=== PATIENT | male | born 1965 | race Caucasian/White ===

== ENCOUNTER → 2017-06-25 | Outpatient (CLI) | payer BC ==
[2017-06-25 13:36] LABS: Appearance,Urine Clear (Clear); Bilirubin,Urine Negative (Negative); Blood,Urine Negative (Negative); Color,Urine Colorless; Glucose,Urine (UA) Negative (Negative); Ketones,Urine Negative (Negative); Leukocyte Esterase,Urine Negative (Negative); Nitrite,Urine Negative (Negative); Protein,Urine Negative (Negative); Specific Gravity,Urine 1.003 (1.001-1.035); Urobilinogen,Urine <2.0 mg/dL (<2.0)
[2017-06-25 13:38] LABS: HCT 44.3 % (39.0-53.0); HGB 15.2 gm/dL (13.0-17.5); MCH 31.7 pg (25.0-35.0); MCHC 34.3 g/dL (31.0-37.0); MCV 92.3 fL (80.0-100.0); Platelet Count 276 k/uL (150-450); RDW 12.8 % (11.5-15.5); WBC 6.7 k/uL (3.8-10.6)
[2017-06-25 13:55] LABS: Partial Thromboplastin Time 24.8 sec (22.0-30.0); Prothrombin Time 10.1 sec (9.0-12.0)
[2017-06-25 13:57] LABS: ALT 46 U/L (21-72); AST 27 U/L (17-59); Albumin 4.2 g/dL (3.5-5.0); Alkaline Phosphatase 45 U/L (38-126); Anion Gap 9 mmol/L; Blood Urea Nitrogen 17 mg/dL (9-20); Calcium 9.8 mg/dL (8.4-10.2); Carbon Dioxide 30 mmol/L (22-30); Chloride 102 mmol/L (98-107); Glucose 90 mg/dL (74-99); Potassium 4.7 mmol/L (3.5-5.1); Sodium 141 mmol/L (137-145); Total Bilirubin 0.4 mg/dL (0.2-1.3)
== END | disposition home or self-care (01) ==
LOC: LABPAT 12:37
PROVIDERS: ATTEND Orthopaedic Surgery
DX: Z01.818 Encounter for other preprocedural examination (principal); Z01.812 Encounter for preprocedural laboratory examination; M16.11 Unilateral primary osteoarthritis, right hip
CPT/HCPCS: 36415; 80053; 81003; 85027; 85610; 85730; 87070; 93005

== ENCOUNTER 2017-07-07 08:04 | Inpatient (IN) | payer BC ==
[2017-06-30 09:51] VITALS: BMI 25.8
[~2017-07-07 08:04] MED LIST: ACETAMINOPHEN TAB 500 MG TAB PO ONE; DEXAMETHASONE SOD PHOSPHATE 10 MG/ML 1 ML VIAL IV ONE; LACTATED RINGERS 1,000 ML IV SCH; MELOXICAM 7.5 MG TAB PO ONE; MIDAZOLAM 2 MG/2 ML VIAL IV PRN; MORPHINE SULFATE 4 MG/ML SYRINGE IV PRN; ONDANSETRON 4 MG/2 ML VIAL IVP ONE; SCOPOLAMINE 1.5MG/72HR PATCH TRANSDERM ONE; TRANEXAMIC ACID 1,000 MG in SODIUM CHLORIDE 0.9% 50 ML IVPB ONE; ceFAZolin IN SWFI 2 GM/20 ML SYRINGE IVP ONE
[2017-07-07] MEDS ORDERED: LIDOCAINE 1% 20 ML VIAL (10MG/ML) FOR IV START INTRADERMA ONE (08:58)
[2017-07-07] MEDS ORDERED: hydrOXYzine PAMOATE 25 MG CAP PO PRN (09:22)
[2017-07-07] MEDS ORDERED: HYDROmorphone 2 MG/ML 1 ML SYRINGE IVP PRN ×3 (09:22)
[2017-07-07] MEDS ORDERED: NALOXONE 0.4 MG/ML 1 ML VIAL IV PRN (09:22)
[2017-07-07] MEDS ORDERED: MAGNESIUM HYDROXIDE 2,400 MG/10 ML CUP PO PRN (09:22)
[2017-07-07] MEDS ORDERED: ONDANSETRON 4 MG/2 ML VIAL IVP PRN (09:22)
[2017-07-07] MEDS ORDERED: DIAZEPAM 5 MG TAB PO PRN ×2 (09:22)
[2017-07-07] MEDS ORDERED: HYDROcodone/APAP 5-325MG 1 EACH TAB PO PRN (09:22)
[2017-07-07] MEDS ORDERED: TRANEXAMIC ACID 1,000 MG/10 ML VIAL ONE (09:55)
[2017-07-07] MEDS ORDERED: PROPOFOL 10 MG/ML 20 ML VIAL IV ONE (09:55)
[2017-07-07] MEDS ORDERED: HEPARIN SODIUM,PORCINE 10,000 UNIT/ML 1 ML VIAL ONE (09:55)
[2017-07-07] MEDS ORDERED: fentaNYL (PF) 50 MCG/ML 2 ML AMP ONE (09:55)
[2017-07-07] MEDS ORDERED: SODIUM CHLORIDE 0.9% 100 ML BAG ONE (09:55)
[2017-07-07] MEDS ORDERED: SODIUM CHLORIDE 0.9% IRRIG 1,000 ML BTL IRRIGATION ONE (09:55)
[2017-07-07] MEDS ORDERED: MIDAZOLAM 2 MG/2 ML VIAL ONE (09:55)
[2017-07-07] MEDS ORDERED: ceFAZolin 1,000 MG in SODIUM CHLORIDE 0.9% 1,000 ML IRRIGATION ONE ×4 (09:55)
[2017-07-07] MEDS: ROPIVACAINE 246.25 MG, EPINEPHrine 0.5 MG, KETOROLAC 30 MG, cloNIDine HCL/PF 80 MCG, WA... MISCELLANE ONE ×10 (10:22→11:09)
[2017-07-07] MEDS ORDERED: LACTATED RINGERS 1,000 ML IV ONE (10:35)
--- NOTE | 2017-07-07 11:28 | P.OP ---
Date of Procedure: 07/07/17 Preoperative Diagnosis: Severe osteoarthritis right hip Postoperative Diagnosis: Severe osteoarthritis right hip Procedure(s) Performed: Right total hip arthroplasty with a direct anterior approach Implants: Berg and nephew Polarstem size 4 standard Berg & Nephew R3, 3 hole acetabular shell, 54 mm Berg [employer] Nephew reflection 6.5 mm cancellus screw, 20 mm 2 Berg [employer] Nephew R3, XLPE 20 acetabular liner Berg & Nephew Oxinium femoral head 36 m, +0 All components were press-fit. The articulation is Oxinium on polyethylene. Anesthesia: spinal Surgeon: Dallin Hartman Threshing Operator #1: Dana Trujillo Estimated Blood Loss (ml): 150 (55 mL returned in Cell Saver) Pathology: other (Femoral head) Condition: stable Disposition: PACU Indications for Procedure: After failure of conservative treatment we discussed the surgical and nonsurgical treatment options at length. Patient wishes to proceed with a total hip arthroplasty with a direct anterior approach. Complications specific to this procedure were discussed at length, including but not limited to infection, leg length discrepancy, dislocation, and nerve injury. Patient is aware of all these complications and informed consent was obtained Operative Findings: The operative findings are consistent with severe osteoarthritis of the right hip Description of Procedure: Patient was seen and evaluated in the preoperative area, consent was reviewed, and the surgical site was marked with a skin marker. Patient was then brought to the operating room and given prophylactic antibiotics intravenously. 1 g of Tranexamic acid was also given. A spinal anesthetic was administered by the anesthesia department. The patient was then placed on the Brooks table with the bony prominences well-padded. The hip area was then prepped and draped in usual sterile fashion. A universal timeout was then performed, which confirmed the patient's name, surgical site, ALLERGIES, and procedure being performed. Next the incision site was located at 1 cm distal and 1 cm lateral to the anterior superior iliac spine. The skin and subcutaneous tissues were sharply incised. Incision was carefully dissected down to the fascia overlying the tensor fascia jose muscle. This fascia was then incised in line with the incision. Next, using blunt finger dissection, the tensor fascia jose muscle was dissected off its investing fascia. The muscle was then carefully retracted laterally with a cobra retractor over the lateral neck of the femur. Next, the circumflex vessels were identified and cauterized using the AquaMantis device. The anterior hip capsule was then exposed. The capsule was then opened and an inverted T fashion. Cobra retractors were then placed intracapsularly. The proximal femur was then visualized. The femoral neck was then osteotomized appropriate level above the lesser trochanter. Small amount of traction was placed with the Brooks table. A small wedge of bone was then removed from the remaining femoral head. Next, using a corkscrew femoral head was easily removed from the acetabulum. On gross visual inspection, the femoral head had complete loss of articular cartilage in multiple periarticular osteophytes. Attention was then turned to the acetabulum. the acetabulum was exposed and any remaining labrum was excised. Sequential reaming of the acetabulum was performed using fluoroscopic guidance. When the appropriate size was reached, a trial was then placed. The position and fit of the trial was checked with fluoroscopy. The trial was then removed. Then, using fluoroscopic guidance, the final implant was impacted at 20 of anteversion and 40 of abduction, and fully seated in the acetabulum. 2 screws were then placed in the acetabulum. Again fluoroscopy was used to check position of the screws. Next, the liner was then impacted, with a 20 elevated liner located in the anterior superior quadrant. Component locking was confirmed. Attention was then directed to the femur. With the aid of the Brooks table, the femur was externally rotated to approximately 130, extended, and abducted under the opposite leg. A side hook was then placed under the proximal femur, and the side hook elevator was used to elevate the proximal femur. Retractors were then placed. A capsular release was performed, as well as a release of the conjoined tendon, which afforded excellent visualization of the proximal femur. Next, a box osteotome was used to lateralize the proximal femur. A sander hand was then used to locate the femoral canal. Sequential broaching was then performed with appropriate size which afforded excellent fixation in the proximal femur. A trial was then placed with appropriate head and neck, and the hip was gently reduced with the aid of the Brooks table. Fluoroscopy was then used to check position of the components, as well as to ensure equal leg lengths. The hip was then gently dislocated and the trials were then removed. Final implants were then impacted and the hip was again reduced. Final fluoroscopic x-rays confirmed that the components were in anatomic position, as well as equal leg lengths. The hip was also taken through range of motion, and found to be stable. The hip was then copiously irrigated with antibiotic solution with pulsatile lavage. The hip was then irrigated with Irrisept solution. The soft tissues were then injected with a ropivacaine solution, which consisted of 246.25 mg of ropivacaine, 0.5 mg of epinephrine, 30 mg of Toradol, 80 g of clonidine, and 48.45 mL of sterile water, for a total of 100 mL of fluid injected. A second dose of 1 g of Tranexamic acid was also given. the fascia was then closed with 2-0 strata fix suture. The subcutaneous tissue was closed with 3-0 Vicryl. The subcuticular tissue was closed with 3-0 strata fix suture. The skin was then closed with Dermabond glue and a sterile silver dressing. The patient was then transferred to the recovery room in stable condition. The hospital aides and assistants teacher KRAIG Bates was required due to the complexity of surgery, and the need for skilled surgical garment inspector for positioning, draping, exposure, retraction, and closure of the wound.
--- NOTE | 2017-07-07 11:49 | XR ---
Right hip limited HISTORY: Status post right hip arthroplasty Single frontal view of the right hip Patient is status post right hip arthroplasty. There is anatomic alignment. Lucency is present in the soft tissues. IMPRESSION: Orthopedic follow-up.
--- NOTE | 2017-07-07 12:13 | XR ---
Limited right hip HISTORY: Right hip arthroplasty 2 intraoperative C-arm images document the procedure
--- NOTE | 2017-07-07 12:14 | FL ---
Fluoroscopy HISTORY: Right hip arthroplasty 50 seconds fluoroscopy time supplied to the referring clinician. 2 intraoperative C-arm images docum ent the procedure. See dictated report from orthopedic surgery.
[2017-07-07] MEDS: ceFAZolin IN SWFI 2 GM/20 ML SYRINGE IVP SCH (15:06)
[2017-07-07] MEDS: SODIUM CHLORIDE 0.9% 1,000 ML IV SCH (15:06)
[2017-07-07] MEDS ORDERED: SENNOSIDES-DOCUSATE SODIUM 1 EACH TAB PO SCH (21:00)
[2017-07-07] MEDS ORDERED: LATANOPROST 0.005% OPHTH DROPS 2.5 ML BTL BOTH EYES SCH (21:00)
[2017-07-07] MEDS ORDERED: TETRAHYDROZOLINE 0.05% OPHTH DROPS 15 ML BTL BOTH EYES PRN (21:12)
[2017-07-07] MEDS: ASPIRIN 325 MG TAB PO SCH (21:28)
[2017-07-07] MEDS: HYDROcodone/APAP 5-325MG 1 EACH TAB PO PRN ×2 (21:28→22:59)
[2017-07-08] MEDS: ceFAZolin IN SWFI 2 GM/20 ML SYRINGE IVP SCH (00:30)
[2017-07-08] MEDS: SODIUM CHLORIDE 0.9% 1,000 ML IV SCH (05:31)
[2017-07-08] MEDS: ASPIRIN 325 MG TAB PO SCH (07:19)
[2017-07-08] MEDS ORDERED: PANTOPRAZOLE 40 MG TABLET PO SCH (07:30)
[2017-07-08 08:01] VITALS: BP 104/63; PULSE 57; RESP 16; TEMP 98.7
[2017-07-08 08:18] LABS: Basophils % (A) 0 %; Eosinophils % (A) 0 %; HCT 38.8 % (39.0-53.0); HGB 12.9 gm/dL (13.0-17.5); Lymphocytes # (A) 2.3 k/uL (1.0-4.8); Lymphocytes % (A) 20 %; MCH 30.7 pg (25.0-35.0); MCHC 33.2 g/dL (31.0-37.0); MCV 92.5 fL (80.0-100.0); Mean Platelet Volume 7.3; Monocytes # (A) 0.9 k/uL (0-1.0); Monocytes % (A) 7 %; Neutrophils # (A) 8.3 k/uL (1.3-7.7); Neutrophils % (A) 71 %; Platelet Count 262 k/uL (150-450); RBC 4.19 m/uL (4.30-5.90); RDW 12.7 % (11.5-15.5); WBC 11.7 k/uL (3.8-10.6)
--- NOTE | 2017-07-08 08:40 | CONS ---
CONSULTATION DATE OF CONSULTATION: 07/07/2017 REASON FOR CONSULTATION: Medical management requested by Dr. Hartman. CONSULTATION: This is a very pleasant 52-year-old patient of Dr. Kvng Gordon. Chronic stable medical conditions include diverticulosis, osteoarthritis of the neck and lower back and some of the knees. The patient has been having right hip coming on for some time, progressively getting worse and interfering with his getting about, would be better with rest, mainly located to the right hip area. Did get better with analgesics, dull and sharp in nature. Because of not getting better, patient has now undergone a right total hip arthroplasty. Postprocedure, no nausea, vomiting. No chest pain or short of breath. The patient did tolerate his supper. REVIEW OF SYSTEMS: CONSTITUTIONAL: None. HEENT: None. RESPIRATORY: None. CARDIOVASCULAR: None. GASTROINTESTINAL: None. GENITOURINARY: None. MUSCULOSKELETAL: Some pain at the operative site. Pain in the neck, lower back. DERMATOLOGICAL: None. HEMATOLOGIC: None. LYMPHATIC: None. PSYCHIATRY: None. NEUROLOGICAL: None. PAST MEDICAL HISTORY: High ocular pressures, diverticulosis, occasionally bronchospasms, osteoarthritis. PAST SURGICAL HISTORY: Skin graft right lower leg, jaw surgery, dental implant, fractured right thumb, right hip injection. SOCIAL HISTORY: Does not smoke. Alcohol occasionally. . 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 FAMILY HISTORY: Cancer, type unknown. HOME MEDICATIONS: 1. Ultram 50 mg q.4 p.r.n. 2. Prilosec 20 mg p.o. daily. 3. Voltaren XR 100 mg p.o. daily. 4. Lumigan 0.01% 1 drop to both eyes daily. ALLERGIES: None. PHYSICAL EXAMINATION: On examination, temperature 97.3, pulse 63, respirations 16, blood pressure 104/64, pulse ox 97%. GENERAL APPEARANCE: Average build, lying in bed, comfortable. EYES: Pupils equal. Conjunctivae normal. HENT: Oral cavity normal. NECK: JVD not raised. Mass not palpable. RESPIRATORY: Effort normal. Lungs are clear. CARDIOVASCULAR: First and second sounds normal. No edema. ABDOMEN: Soft, nontender. Liver and spleen not palpable. LYMPHATIC: No lymph nodes palpable in neck or axillae. PSYCHIATRY: Alert and oriented x3. Mood and affect normal. NEUROLOGICAL: Pupils equal. Cranial nerves grossly intact. Power and sensation grossly intact. MUSCULOSKELETAL: Dressing over the right hip. INVESTIGATIONS: Blood work from 06/25/17, white count 6.7, hemoglobin 15.2. Potassium 4.7. BUN and creatinine normal. ASSESSMENT: 1. Right total hip arthroplasty. 2. Suspect osteoarthritis of the cervical spine and lumbar spine. 3. Diverticulosis, asymptomatic. PLAN: The patient's pain control is in place. Getting Valium for possible muscle spasms. The patient has got Xalatan eye drops. The patient is getting aspirin 325 twice a day for DVT prophylaxis. Care was discussed with the patient. Questions were answered. Thank you Dr. Hartman. MMODL / IJN: [id number] /
--- NOTE | 2017-07-08 08:55 | P.DS ---
Providers Date of admission: 07/07/17 08:04 Expected date of discharge: 07/08/17 Attending physician: Dallin Hartman Consults: 07/07/17 09:22 Consult Physician Routine Consulting Provider: Kvng Gordon Consult Reason/Comments: medical management Do you want consulting provider notified?: Yes 07/07/17 12:08 Consult Physician Routine Consulting Provider: Jagdeep Moser Consult Reason/Comments: medical management Do you want consulting provider notified?: Yes Primary care physician: Kvng Gordon - Discharge Diagnosis(es) (1) Primary osteoarthritis of right hip Current Visit: Yes Status: Acute (2) S/P total hip arthroplasty Current Visit: Yes Status: Acute Hospital Course: This is a 52-year-old male with known history of degenerative arthritis of the right hip. The patient presents for evaluation. After discussion and consideration patient elects to proceed with total hip arthroplasty. The patient is seen preoperatively by Dr. Hartman and cleared for surgery. Patient is admitted to [facility] on 07/07/2017 for total hip arthroplasty. The procedures performed without complication or sequelae. The patient is doing well postoperatively. Labs and vital signs are stable on day of discharge. On day of discharge patient's hip incision is healing well. There is minimal erythema. There is no drainage noted at this time. There is minimal soft tissue swelling to the hip and thigh. Patient has full foot and ankle motion without difficulty or pain. Neurovascular status to the right lower extremity is intact. Patient is discharged home in good condition. Please see med rec for accurate list of home medications. Plan - Discharge Summary Discharge Rx Participant: Yes New Discharge Prescriptions: No Action Omeprazole [PriLOSEC] 20 mg PO DAILY Diclofenac Sodium [Voltaren-Xr] 100 mg PO DAILY Bimatoprost [Lumigan .01% Ophth Soln] 1 drop BOTH EYES DAILY traMADol HCL [Ultram] 50 mg PO Q4HR PRN PRN Reason: Pain Discharge Medication List Bimatoprost [Lumigan .01% Ophth Soln] 1 drop BOTH EYES DAILY 06/30/17 [History] Diclofenac Sodium [Voltaren-Xr] 100 mg PO DAILY 06/30/17 [History] Omeprazole [PriLOSEC] 20 mg PO DAILY 06/30/17 [History] traMADol HCL [Ultram] 50 mg PO Q4HR PRN 06/30/17 [History] Patient Instructions/Handouts: *Surgery [facility] - Scopalamine Patch Instructions
[2017-07-08] MEDS ORDERED: DICLOFENAC SODIUM 100 MG PO SCH (09:00)
[2017-07-08] MEDS ORDERED: MELOXICAM 7.5 MG TAB PO SCH (09:00)
--- NOTE | 2017-07-08 23:38 | P.PN ---
Progress Note - Text Progress Note Date: 07/08/17 DATE OF SERVICE: 07/08/2017 PRESENTING COMPLAINT: Left hip osteoarthritis HISTORY OF PRESENT ILLNESS: 52-year-old female who began having right hip discomfort progressively getting worse interfering with his ability to get around improved with rest mainly located to the right hip. Analgesics helped however not fully. As such patient is now status post right total hip arthroplasty. Postprocedure, no vomiting no nausea no chest pain no shortness of breath. INTERVAL HISTORY: 07/08/2017 Sitting up on the edge of the bed fully clothed ready to discharge home today. Pain is well controlled, ambulatory with a walker and assistance. Agreeable to work with physical therapy. Tolerating his diet eating about 50% of his meals. Moved his bowels. REVIEW OF SYSTEMS: Done for constitutional ,cardiovascular, GI, pulmonary with relevant findings as above. CURRENT MEDICATIONS [place], aspirin, capsule, Valium, Dilaudid, Vistaril, latanoprost, Lopid, Versed , Zofran, Senokot-S, Visine. PHYSICAL EXAM VITAL SIGNS: Temperature 98.7, pulse 57, respiratory rate 16, blood pressure 104/63, oxygen saturation 100% on room air GENERAL APPEARANCE: Lying up on the edge of the bed, not in distress. HENT: Normocephalic, JVD not raised. Mass not palpable. Oral cavity normal, external appearance of ears and nose normal. EYES:Pupils equal. Conjunctiva normal. RESPIRATORY: Respiratory effort normal. Lungs diminished to auscultation. CARDIOVASCULAR: First and second sounds normal. No edema. ABDOMEN: Soft. Liver and spleen not palpable. No tenderness. No mass palpable. PSYCHIATRY: Alert and oriented x3. Mood and affect normal. MUSCULOSKELETAL: Right hip dressing intact no drainage noted. INVESTIGATIONS: White blood cell count 11.7, hemoglobin 12.9 ASSESSMENT: -Right total hip arthroplasty -Leukocytosis as an acute phase reaction to surgery -Suspect osteoarthritis of the cervical spine and lumbar spine. -Diverticulosis, asymptomatic. PLAN: Overall medical conditions are stable, patient is appropriate for discharge to home. [place] statement: Patient was seen and examined by nurse practitioner Kaila Trujillo and all elements of the case discussed with attending Dr. Moser
--- NOTE | 2017-07-09 05:25 | PN ---
PROGRESS NOTE DATE OF SERVICE: 07/08/2017 ATTENDING NOTE: The patient was seen and examined by me. Discussed with nurse practitioner, Ms. Trujillo. The patient is status post right hip surgery, doing well. No new issues. Keen to go home. Up and about. Tolerating his diet. PHYSICAL EXAMINATION: On examination, lungs are clear. CARDIOVASCULAR: First and second sounds normal. Blood pressure 104/63. Hemoglobin 12.9. ASSESSMENT: 1. Right total hip arthroplasty. 2. Osteoarthritis of cervical spine and lumbar spine. 3. Diverticulosis. 4. Acute postoperative blood loss anemia as expected from surgery. PLAN: Patient is medically stable. To follow up with his family doctor. MMODL / IJN: [id number] /
== END 2017-07-08 14:18 | disposition home health service (06) | DRG 470 ==
LOC: 2ORMAIN 08:04 → 3SUR 11:25
PROVIDERS: ADMIT Orthopaedic Surgery; ATTEND Orthopaedic Surgery
PROC: 0SR906A Replacement of Right Hip Joint with Oxidized Zirconium on Polyethylene Synthetic Substitute, Uncemented, Open Approach (ICD-10-PCS; principal; 2017-07-07 09:20)
DX: M16.11 Unilateral primary osteoarthritis, right hip (principal); D62 Acute posthemorrhagic anemia; D72.829 Elevated white blood cell count, unspecified; K57.90 Diverticulosis of intestine, part unspecified, without perforation or abscess without bleeding; M47.812 Spondylosis without myelopathy or radiculopathy, cervical region; Z79.899 Other long term (current) drug therapy
CPT/HCPCS: 36415; 73501; 85025; 86850; 86891; 86900; 86901; 88300